=== PATIENT | male | born 1960 | race Caucasian/White ===

== ENCOUNTER 2024-05-28 09:50 | Emergency (ER) | payer BC ==
[~2024-05-28] VITALS: Ht 162.6 cm; Wt 73.6 kg
[2024-05-28 10:28] LABS: BASOPHILS % (AUTO) 0.1 % (0-1); EOSINOPHILS % (AUTO) 0.3 % (0-6); HEMATOCRIT 43.7 % (42.0-52.0); HEMOGLOBIN 14.5 g/dl (14.0-17.9); LYMPHOCYTES # (AUTO) 0.8 X10'3 (1.1-4.8); LYMPHOCYTES % (AUTO) 7.2 % (21-51); MEAN CORPUSCULAR HEMOGLOBIN 31.1 PG (27.0-31.0); MEAN CORPUSCULAR HGB CONC 33.2 g/dL (33.0-36.5); MEAN CORPUSCULAR VOLUME 93.5 FL (78-98); MEAN PLATELET VOLUME 7.9 FL (7.4-10.4); MONOCYTES # (AUTO) 0.3 X10'3 (0-0.9); MONOCYTES % (AUTO) 2.6 % (2-12); NEUTROPHILS # (AUTO) 9.5 X10'3 (1.8-7.7); NEUTROPHILS % (AUTO) 89.8 % (42-75); PLATELET COUNT 228 X10'3 (140-440); RED BLOOD COUNT 4.67 X10'6 (4.70-6.10); RED CELL DISTRIBUTION WIDTH 13.7 % (11.5-14.5); WHITE BLOOD COUNT 10.6 X10'3 (4.5-11.0)
[2024-05-28 10:41] LABS: ALANINE AMINOTRANSFERASE 42 U/L (12-78); ALBUMIN 4.3 G/DL (3.4-5.0); ALBUMIN/GLOBULIN RATIO 1.2 (1.1-1.5); ALKALINE PHOSPHATASE 71 IU/L (46-116); AMYLASE 44 U/L (25-115); ANION GAP 9 (8-16); ASPARTATE AMINO TRANSFERASE 20 U/L (10-37); BILIRUBIN,TOTAL 0.5 MG/DL (0.1-1.0); BLOOD UREA NITROGEN 23 MG/DL (7-18); BUN/CREATININE RATIO 17.8 (10.0-20.0); CALCIUM 9.3 MG/DL (8.5-10.1); CHLORIDE 103 MMOL/L (99-107); CREATININE 1.29 MG/DL (0.60-1.10); GLUCOSE 144 MG/DL (70-104); LIPASE 31 U/L (16-77); POTASSIUM 4.1 MMOL/L (3.5-5.1); SODIUM 139 MMOL/L (135-145); TOTAL CARBON DIOXIDE 27.1 MMOL/L (24-32); TOTAL PROTEIN 7.8 G/DL (6.4-8.2); eCRCL 48 ML/MIN; eGFR 56 ML/MIN
[2024-05-28] MEDS: ondansetron/PF 4mg/2ml inj IV ONE (11:48)
[2024-05-28] MEDS: ketorolac tromethamine 15mg/ml inj. IV ONE (11:49)
[2024-05-28] MEDS: normal saline 1000ml 1,000 ML IV ONE (11:50)
[2024-05-28] MEDS: phenazopyridine 100mg tablet PO ONE (12:22)
[2024-05-28] MEDS: HYDROmorphone 1 mg/ml syringe IV ONE (12:22)
[2024-05-28] MEDS ORDERED: ONDA-245 PO (12:48)
[2024-05-28] MEDS ORDERED: PHEN-716 PO (12:48)
[2024-05-28] MEDS ORDERED: FLO0.4C PO (12:48)
[2024-05-28] MEDS ORDERED: HYDR-3972 PO (12:48)
[2024-05-28 12:53] LABS: BILIRUBIN,URINE NEGATIVE (Neg); CLARITY,URINE CLOUDY (Clear); COLOR,URINE YELLOW (Yellow); GLUCOSE, URINE NEGATIVE (Neg); KETONES,URINE NEGATIVE (Neg); LEUKOCYTE ESTERASE ,URINE NEGATIVE (Neg); NITRITES, URINE NEGATIVE (Neg); OCCULT BLOOD,URINE LARGE (Neg); PROTEIN,URINE NEGATIVE (Neg); UA COLLECTION TYPE VOIDED; UROBILINOGEN,URINE 0.2 E.U/dL (0.2-1.0)
[2024-05-28 12:56] VITALS: BP 151/85; PULSE 60; RESP 16; TEMP 96.9; O2SAT 97
[2024-05-28 13:03] LABS: RBC,URINE TNTC /HPF (0-2)
[2024-05-28 13:04] LABS: BACTERIA,URINE FEW /HPF (Neg); WBC,URINE 0-4 /HPF (0-4)
[2024-05-28 13:05] LABS: SQUAMOUS EPITHELIAL CELL,UR FEW /LPF (FEW)
== END 2024-05-28 13:07 | disposition home or self-care (01) ==
LOC: ER 09:50
DX: N20.1 Calculus of ureter (principal)
CPT/HCPCS: 36415; 74176; 80053; 81001; 82150; 83690; 85025; 96361; 96374; 96375; 99285; J1170; J1885; J2405; J7030